=== PATIENT | male | born 1985 | race African-American/Black ===

== ENCOUNTER 2018-12-01 16:47 | Emergency (ER) | payer BC ==
[~2018-12-01] VITALS: Ht 167.6 cm; Wt 83.0 kg
[2018-12-01 17:04] VITALS: BP 145/85
--- NOTE | 2018-12-01 17:15 | Emergency Room Report ---
History of Present Illness General Chief Complaint: Head Injury Source: Patient Present Illness HPI Patient is a 33-year-old male presented after increased right-sided headache. Patient had recent fall and injured the right side of his head. Patient stated that he hit the right side of his head on a spigot. He did not recall any loss of consciousness. He reports having worsening headache. Injury occurred several days prior to arrival. He reports no episodes of vomiting. Allergies: Coded Allergies: No Known Allergies (Unverified , 12/01/18) Patient History Past Medical History: see triage record Reviewed Nursing Documentation: PMH: Agreed; PSxH: Agreed Nursing Documentation-PMH Past Medical History: No Stated History Review of Systems All Other Systems: negative except mentioned in HPI Physical Exam Vital Signs Date Time Temp Pulse Resp B/P (MAP) Pulse Ox O2 Delivery O2 Flow Rate FiO2 12/01/18 16:51 98.4 67 15 146/92 99 Room Air Sp02 EP Interpretation: reviewed, normal General Appearance: normal inspection, well appearing, no apparent distress, alert, GCS 15 Head: other - right side scalp tenderness and swelling ENT: normal ENT inspection, hearing grossly normal, normal voice Neck: normal inspection, full range of motion, supple, no bony tend Respiratory: normal inspection, lungs clear, normal breath sounds, no respiratory distress, no retraction, no wheezing Cardiovascular #1: regular rate, rhythm, no edema Gastrointestinal: normal inspection, normal bowel sounds, non tender, soft, no guarding, no hernia Genitourinary: no CVA tenderness Musculoskeletal: normal inspection, back normal, normal range of motion Neurologic: normal inspection, alert, responsive, speech normal Psychiatric: normal inspection, judgement/insight normal, mood/affect normal Skin: normal inspection, normal color, no rash Medical Decision Making Diagnostic Impression: Primary Impression: Contusion of scalp Additional Impression: Acute head injury ER Course Patient presented for headache. Differential diagnoses included but was not limited to skull fracture, subarachnoid hemorrhage, meningitis, aneurysm, mass lesion, intracranial hemorrhage. Because of complexity of patient's case imaging studies were ordered. CT the head read by radiology showed no evidence of acute intracranial hemorrhage. Patient's initial fall appear to be alcohol related. Patient was given prescription for ibuprofen for pain. He was advised to follow-up with primary care physician for recheck if needed. Patient is medically cleared for return to work but was advised not to lift heavy objects. Last Vital Signs Date Time Temp Pulse Resp B/P (MAP) Pulse Ox O2 Delivery O2 Flow Rate FiO2 12/01/18 16:51 98.4 67 15 146/92 99 Room Air Status: improved Disposition: HOME, SELF-CARE Condition: Stable Scripts Ibuprofen* (MOTRIN*) 600 Mg Tablet 600 MG ORAL Q8H PRN for For Pain, #30 TAB 0 Refills Prov: Navi Cheung MD 12/01/18 Navi Cheung MD Dec 01, 2018 17:15
--- NOTE | 2018-12-01 17:15 | NUR ---
ED Nurse Note: patient walked in by him self, complaining of headache 3/, AAO x 4, skin warm to touch , dry, and intact. per patient he felt from the porch on Tuesday, had short time of memory lost. Respiratory is even, VS are stable.
--- NOTE | 2018-12-01 17:26 | NUR ---
ED Nurse Note: pt went to CT scan
[2018-12-01] MEDS ORDERED: IBUPROFEN600 MG ORAL (18:11)
[2018-12-01] MEDS ORDERED: Zosyn 3.375gm inj ONE (18:12)
[2018-12-01 18:17] VITALS: BP 145/85
--- NOTE | 2018-12-01 18:18 | NUR ---
ED Nurse Note: Pt cleared DC by Dr. Cheung. Pt is A/Ox4, VSS, DC instruction and prescriptions given, pt verbalized understanding. ID wristband removed. All belongings given to pt. Pt ambulated out of ER with steady gait.
== END 2018-12-01 18:19 | disposition home or self-care (01) ==
LOC: EMR 17:19
DX: S00.03XA Contusion of scalp, initial encounter (principal); W19.XXXA Unspecified fall, initial encounter; Y92.89 Other specified places as the place of occurrence of the external cause; F17.200 Nicotine dependence, unspecified, uncomplicated
CPT/HCPCS: 70450; 99282; J2543; J2405